=== PATIENT | female | born 1990 | race African-American/Black ===

== ENCOUNTER 2016-09-18 17:15 | Emergency (ER) | payer OTHER ==
--- NOTE | 2016-09-18 18:16 | REP ---
Clinical: Trauma. Technique: AP, lateral, bilateral oblique views of the right first toe. Findings: Very subtle nondisplaced fracture at the base of the distal phalanx cannot be excluded and should be correlated with mechanism of injury and point of tenderness. Remainder examination appears normal. Impression: Cannot exclude subtle nondisplaced fracture at the base of the distal phalanx. Signed by Jose Miguel Sun MD 09/18/2016 06:00 P
--- NOTE | 2016-09-18 18:51 | EDDOCDS ---
Physician Documentation [facility] Name: Froilan Cortez Age: 25 yrs Sex: Female : 1990 Arrival Date: 09/18/2016 Time: 17:15 Bed PR Private MD: NAYLA Junior Disposition: 09/18/16 18:40 Discharged to Home/Self Care. Impression: Nondisplaced fracture of distal phalanx of right great toe. - Condition is Stable. - Discharge Instructions: Toe Fracture. - Prescriptions for [place] 5- 325 mg Oral Tablet - take 1 tablet by ORAL route every 6 hours As needed MDD: 4 tabs; 20 tablet. - Medication Reconciliation, Work Release Form - 3 day, Gym Release Form, Local Pharmacy Hours form. - Follow up: NAYLA Junior; When: 1 week; Reason: Recheck today's complaints, Continuance of care. - Problem is new. - Symptoms are unchanged. Historical: - Allergies: no known allergies; - Home Meds: 1. none - PMHx: none; - PSHx: none; - Social history: Smoking status: Patient states was never smoker of tobacco. No barriers to communication noted, The patient speaks fluent [place], Speaks appropriately for age. - : The pt / caregiver states he / she is not on anticoagulants. Home medication list is obtained from the patient. - Exposure Risk Screening:: None identified. 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 6 in. (167.64 cm) (R); Pain 4/10; 17:17 Body Mass Index 24.37 (68.49 kg, 167.64 cm) gr2 MDM: 17:46 Toes Ordered. EDMS 18:04 Financial registration complete. [facility] 18:04 [facility] Payment Agreement was scanned into OpenEd and attached to record. gjb 18:38 [facility] [place] ordered. jed Signatures: Dispatcher MedHost EDSamir Tirado, AUTOMOBILE OR TRUCK RENTAL DISPATCHER AUTOMOBILE OR TRUCK RENTAL DISPATCHER Libby Ambrose, RN RN Leni MarshRN RN Roxana Washington The chart was reviewed and I authenticate all verbal orders and agree with the evaluation and treatment provided.Attachments: 18:04 [facility] Payment Agreement andrés MTDD
--- NOTE | 2016-09-18 18:51 | EDDOCDS ---
Nurse's Notes [facility] Name: Froilan Cortez Age: 25 yrs Sex: Female : 1990 Arrival Date: 09/18/2016 Time: 17:15 Bed PR1 / 25 Private MD: NAYLA Junior Diagnosis: Nondisplaced fracture of distal phalanx of right great toe Presentation: 09/18 17:19 Presenting complaint: Patient states: Injured right great toe yesterday. Pt reports ld5 increasing pain and discoloration. Adult Sepsis Screening: The patient does not have new or worsening altered mentation. Patient's respiratory rate is less than 22. Systolic blood pressure is greater than 100. Patient has a qSOFA score of 0- Negative Sepsis Screen. Suicide/Homicide risk assessment- the patient denies having any suicidal and/or homicidal ideations and does not present with any other emotional, behavioral or mental health complaints. 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 Transition of care: patient was not received from another setting of care. 17:19 Acuity: ALYSSA Level 4 ld5 17:19 Method Of Arrival: Walkin/Carried/Asstd ld5 Triage Assessment: 17:20 General: Appears in no apparent distress. Pain: Location: right first toe Pain ld5 currently is 6 out of 10 on a pain scale. Aggravated by weight bearing. HIV screening NA for this visit Offered previously. Neurological: Level of Consciousness is awake, alert. Musculoskeletal: Reports pain and bruising to right great toe. 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 none - PMHx: none; - PSHx: none; - Social history: Smoking status: Patient states was never smoker of tobacco. No barriers to communication noted, The patient speaks fluent Spanish, Speaks appropriately for age. - : The pt / caregiver states he / she is not on anticoagulants. Home medication list is obtained from the patient. - Exposure Risk Screening:: None identified. Screenin:49 Screening information is obtained from the patient. Fall risk: No risks identified. jjr Assistance ADL's: requires no assistance with activities of daily living. Abuse/DV Screen: The patient / caregiver reports he/she is: not in a situation that causes fear, pain or injury. Nutritional screening: No deficits noted. Advance Directives: There is no active DNR order. home support is adequate. Assessment: 18:48 General: Appears in no apparent distress, Behavior is appropriate for age. jjr Musculoskeletal: Capillary refill < 3 seconds in right toes Reports pain in right first toe. Vital Signs: 17:17 BP 142 / 64; Pulse 70; Resp 18 S; Temp 97.5(O); Pulse Ox 100% on R/A; Weight 68.49 kg gr2 (R); Height 5 ft. 6 in. (167.64 cm) (R); Pain 4/10; 17:17 Body Mass Index 24.37 (68.49 kg, 167.64 cm) gr2 Vitals: 17:17 Log In Time: September 18, 2016 at 17:17. gr2 ED Course: 17:16 Patient visited by Juan Gaspar. gr2 17:16 Patient moved to Waiting gr2 17:17 [place] [facility] [place] Private Physician. gr2 17:18 Patient visited by Juan Gaspar. gr2 17:18 Patient moved to Pre RCE gr2 17:20 Triage Initiated ld5 17:21 Patient visited by Leni Rider RN. ld5 17:21 Patient moved to Triage 2 ld5 17:41 [facility] ke 17:41 Patient visited by Samir Calderón FNP. ke 17:41 Patient visited by Samir Calderón FNP. ke 17:49 Patient moved to TR1 ld5 18:04 [facility] Payment Agreement was scanned into ROXIMITY and attached to record. gjb 18:07 Patient name changed from Nyseria\S\\S\Jones Ali\S\ to Nyseria\S\ \S\Max Ali. EDMS 18:18 Patient visited by Samir Calderón FNP. ke 18:39 NAYLA Junior is Referral Physician. ke 18:42 Patient moved to PR1 / 25 jjr 18:49 The patient / caregiver is instructed regarding the plan of care and ED course. jjr 18:49 No IV's were initiated during this patient's visit. No procedures done that require jjr assistance. Order Results: There are currently no results for this order. Outcome: 18:40 Discharge ordered by Provider. jed 18:49 Discharge Assessment: patient administered narcotics - no. The following High Risk jjr Discharge criteria are identified: None. Discharged to home ambulatory. Condition: stable. Discharge instructions given to patient, Instructed on discharge instructions, follow up and referral plans. medication usage, Demonstrated understanding of instructions, medications, Prescriptions given X 1, Work note provided to patient. No special radiology studies were completed. Property sent home with patient. 18:49 Patient left the ED. jjr Signatures: Dispatcher MedHost EDMS Samir Calderón, MOLDED GOODS EMBOSSING PRESS OPERATOR MOLDED GOODS EMBOSSING PRESS OPERATOR Libby Ambrose RN RN jLeni Gamez RN RN ld5 Juan Gaspar Roxana Bright FRANCHESCA
--- NOTE | 2016-09-20 19:50 | EDDOCDS ---
Physician Documentation [facility] Name: Froilan Cortez Age: 25 yrs Sex: Female : 1990 Arrival Date: 09/18/2016 Time: 17:15 Bed PR Private MD: NAYLA Junior Disposition: 09/18/16 18:40 Discharged to Home/Self Care. Impression: Nondisplaced fracture of distal phalanx of right great toe. - Condition is Stable. - Discharge Instructions: Toe Fracture. - Prescriptions for [place] 5- 325 mg Oral Tablet - take 1 tablet by ORAL route every 6 hours As needed MDD: 4 tabs; 20 tablet. - Medication Reconciliation, Work Release Form - 3 day, Gym Release Form, Local Pharmacy Hours form. - Follow up: NAYLA Junior; When: 1 week; Reason: Recheck today's complaints, Continuance of care. - Problem is new. - Symptoms are unchanged. Historical: - Allergies: no known allergies; - Home Meds: 1. none - PMHx: none; - PSHx: none; - Social history: Smoking status: Patient states was never smoker of tobacco. No barriers to communication noted, The patient speaks fluent [place]ian, Speaks appropriately for age. - : The pt / caregiver states he / she is not on anticoagulants. Home medication list is obtained from the patient. - Exposure Risk Screening:: None identified. 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 6 in. (167.64 cm) (R); Pain 4/10; 17:17 Body Mass Index 24.37 (68.49 kg, 167.64 cm) gr2 MDM: 17:46 Toes Ordered. EDMS 18:04 Financial registration complete. gjb 18:04 [facility] Payment Agreement was scanned into BBC Easy and attached to record. gjb 18:38 [facility] [place] Nursing Order ordered. ke 09/19 09:13 T-Sheet-- Draft Copy was scanned into BBC Easy and attached to record. gb Signatures: Dispatcher MedHost EDSilva Aguilar, Reg Reg gb Samir Calderón, Libby Beasley RN RN Leni Marsh RN RN Roxana Washington The chart was reviewed and I authenticate all verbal orders and agree with the evaluation and treatment provided.Attachments: 09/18 18:04 [facility] [place] Payment Agreement gjb 09/19 09:13 T-Sheet-- Draft Copy gb Chart Complete MTDD
--- NOTE | 2016-09-20 19:50 | EDDOCDS ---
Physician Documentation [facility] Name: Froilan Cortez Age: 25 yrs Sex: Female : 1990 Arrival Date: 09/18/2016 Time: 17:15 Bed PR Private MD: NAYLA Junior Disposition: 09/18/16 18:40 Discharged to Home/Self Care. Impression: Nondisplaced fracture of distal phalanx of right great toe. - Condition is Stable. - Discharge Instructions: Toe Fracture. - Prescriptions for [place] 5- 325 mg Oral Tablet - take 1 tablet by ORAL route every 6 hours As needed MDD: 4 tabs; 20 tablet. - Medication Reconciliation, Work Release Form - 3 day, Gym Release Form, Local Pharmacy Hours form. - Follow up: NAYLA Junior; When: 1 week; Reason: Recheck today's complaints, Continuance of care. - Problem is new. - Symptoms are unchanged. Historical: - Allergies: no known allergies; - Home Meds: 1. none - PMHx: none; - PSHx: none; - Social history: Smoking status: Patient states was never smoker of tobacco. No barriers to communication noted, The patient speaks fluent Croatian, Speaks appropriately for age. - : The pt / caregiver states he / she is not on anticoagulants. Home medication list is obtained from the patient. - Exposure Risk Screening:: None identified. 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 6 in. (167.64 cm) (R); Pain 4/10; 17:17 Body Mass Index 24.37 (68.49 kg, 167.64 cm) gr2 MDM: 17:46 Toes Ordered. EDMS 18:04 Financial registration complete. gjb 18:04 [facility] Payment Agreement was scanned into Employee Benefit Plans and attached to record. gjb 18:38 [facility] [place]. Nursing Order ordered. ke 09/19 09:13 T-Sheet-- Draft Copy was scanned into Employee Benef[employer] and attached to record. gb Signatures: Dispatcher MedHost EDSilva Aguilar, Reg Reg gb Samir Calderón, Libby Beasley RN RN Leni Marsh RN RN Roxana Washington The chart was reviewed and I authenticate all verbal orders and agree with the evaluation and treatment provided.Attachments: 09/18 18:04 [facility] [place] [place] Payment Agreement gjb 09/19 09:13 T-Sheet-- Draft Copy gb Chart Complete MTDD
--- NOTE | 2016-09-20 19:51 | EDDOCDS ---
Nurse's Notes [facility] Name: Froilan Cortez Age: 25 yrs Sex: Female : 1990 Arrival Date: 09/18/2016 Time: 17:15 Bed PR1 / 25 Private MD: NAYLA Junior Diagnosis: Nondisplaced fracture of distal phalanx of right great toe Presentation: 09/18 17:19 Presenting complaint: Patient states: Injured right great toe yesterday. Pt reports ld5 increasing pain and discoloration. Adult Sepsis Screening: The patient does not have new or worsening altered mentation. Patient's respiratory rate is less than 22. Systolic blood pressure is greater than 100. Patient has a qSOFA score of 0- Negative Sepsis Screen. Suicide/Homicide risk assessment- the patient denies having any suicidal and/or homicidal ideations and does not present with any other emotional, behavioral or mental health complaints. 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 Transition of care: patient was not received from another setting of care. 17:19 Acuity: ALYSSA Level 4 ld5 17:19 Method Of Arrival: Walkin/Carried/Asstd ld5 Triage Assessment: 17:20 General: Appears in no apparent distress. Pain: Location: right first toe Pain ld5 currently is 6 out of 10 on a pain scale. Aggravated by weight bearing. HIV screening NA for this visit Offered previously. Neurological: Level of Consciousness is awake, alert. Musculoskeletal: Reports pain and bruising to right great toe. 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 none - PMHx: none; - PSHx: none; - Social history: Smoking status: Patient states was never smoker of tobacco. No barriers to communication noted, The patient speaks fluent [place], Speaks appropriately for age. - : The pt / caregiver states he / she is not on anticoagulants. Home medication list is obtained from the patient. - Exposure Risk Screening:: None identified. Screenin:49 Screening information is obtained from the patient. Fall risk: No risks identified. jjr Assistance ADL's: requires no assistance with activities of daily living. Abuse/DV Screen: The patient / caregiver reports he/she is: not in a situation that causes fear, pain or injury. Nutritional screening: No deficits noted. Advance Directives: There is no active DNR order. home support is adequate. Assessment: 18:48 General: Appears in no apparent distress, Behavior is appropriate for age. jjr Musculoskeletal: Capillary refill < 3 seconds in right toes Reports pain in right first toe. Vital Signs: 17:17 BP 142 / 64; Pulse 70; Resp 18 S; Temp 97.5(O); Pulse Ox 100% on R/A; Weight 68.49 kg gr2 (R); Height 5 ft. 6 in. (167.64 cm) (R); Pain 4/10; 17:17 Body Mass Index 24.37 (68.49 kg, 167.64 cm) gr2 Vitals: 17:17 Log In Time: September 18, 2016 at 17:17. gr2 ED Course: 17:16 Patient visited by Juan Gaspar. gr2 17:16 Patient moved to Waiting gr2 17:17 [place] [facility] [place] is Private Physician. gr2 17:18 Patient visited by Juan Gaspar. gr2 17:18 Patient moved to Pre RCE gr2 17:20 Triage Initiated ld5 17:21 Patient visited by Leni Rider RN. ld5 17:21 Patient moved to Triage 2 ld5 17:41 Samir Calder[facility] FNP [facility]. ke 17:41 Patient visited by Samir Calderón FNP. ke 17:41 Patient visited by Samir Calderón FNP. ke 17:49 Patient moved to TR1 ld5 18:04 [facility] Payment Agreement was scanned into Bracketr and attached to record. gjb 18:07 Patient name changed from Nyseria\S\\S\[place] Ali\S\ to Nyseria\S\ \S\Max Ali. EDMS 18:18 Patient visited by Samir Calderón FNP. ke 18:39 NAYLA Junior is Referral Physician. ke 18:42 Patient moved to PR1 / 25 jjr 18:49 The patient / caregiver is instructed regarding the plan of care and ED course. jjr 18:49 No IV's were initiated during this patient's visit. No procedures done that require jjr assistance. 19:08 Toes Returned. EDMS 09/19 09:13 T-Sheet-- Draft Copy was scanned into Bracketr and attached to record. gb Order Results: Radiology Order: Toes Test: Toes REASON FOR EXAMINATION: Trauma; Clinical: Trauma.; ; Technique: AP, lateral, bilateral oblique views of the right first toe.; ; Findings:; Very subtle nondisplaced fracture at the base of the distal phalanx cannot be; excluded and should be correlated with mechanism of injury and point of; tenderness. Remainder examination appears normal.; ; Impression:; Cannot exclude subtle nondisplaced fracture at the base of the distal phalanx.; ; ; Signed by; Jose Miguel Sun MD 09/18/2016 06:00 P; Outcome: 09/18 18:40 Discharge ordered by Provider. jed 18:49 Discharge Assessment: patient administered narcotics - no. The following High Risk jjr Discharge criteria are identified: None. Discharged to home ambulatory. Condition: stable. Discharge instructions given to patient, Instructed on discharge instructions, follow up and referral plans. medication usage, Demonstrated understanding of instructions, medications, Prescriptions given X 1, Work note provided to patient. No special radiology studies were completed. Property sent home with patient. 18:49 Patient left the ED. jjr Signatures: Dispatcher MedHo EDKY Silva Mcintosh, Samir Warner, RAW STOCK MACHINE FEEDER RAW STOCK MACHINE FEEDER Libby Ambrose, RN RN Leni Marsh,BHARATHI RN mary5 Juan Gaspar Gabriela gjb Chart Complete MTDD
== END 2016-09-18 18:49 | disposition home or self-care (01) ==
LOC: M ED 17:15
DX: S92.424A Nondisplaced fracture of distal phalanx of right great toe, initial encounter for closed fracture (principal); W23.1XXA Caught, crushed, jammed, or pinched between stationary objects, initial encounter; Y92.019 Unspecified place in single-family (private) house as the place of occurrence of the external cause; Y93.89 Activity, other specified; Y99.9 Unspecified external cause status

== ENCOUNTER 2017-05-03 12:57 | Emergency (ER) | payer OTHER ==
[~2017-05-03] VITALS: Ht 167.6 cm; Wt 70.0 kg
[2017-05-03 12:57] VITALS: BP 136/77
[2017-05-03] MEDS ORDERED: FLUO1OPD (13:03)
[2017-05-03] MEDS ORDERED: AUGM875T28 PO (13:30)
[2017-05-03] MEDS ORDERED: AUGMENTIN 875 MG TAB PO ONE (13:30)
[2017-05-03] MEDS ORDERED: CIPROFLOXACIN HC OTIC SUSPENSION AS ONE (13:30)
[2017-05-03] MEDS ORDERED: IBUPROFEN 800 MG TAB PO ONE (13:30)
== END 2017-05-03 13:49 | disposition home or self-care (01) ==
LOC: M ED 12:57
DX: H92.02 Otalgia, left ear (principal); H60.02 Abscess of left external ear; Z79.899 Other long term (current) drug therapy

== ENCOUNTER 2017-06-29 15:10 | Emergency (ER) | payer OTHER ==
[~2017-06-29] VITALS: Ht 167.6 cm; Wt 70.0 kg
[2017-06-29 15:10] VITALS: BP 133/73
[~2017-06-29 15:10] MED LIST: AUGM875T28 PO; FLUO1OPD
[2017-06-29] MEDS ORDERED: DULO1CAP2 (15:15)
[2017-06-29] MEDS ORDERED: SUMA50TA2 (15:15)
== END 2017-06-29 18:34 | disposition left against medical advice (07) ==
LOC: M ED 15:10
DX: M54.9 Dorsalgia, unspecified (principal); Z53.21 Procedure and treatment not carried out due to patient leaving prior to being seen by health care provider